=== PATIENT | male | born 1995 | race African-American/Black ===

== ENCOUNTER 2020-09-23 20:53 | Emergency (ER) | payer MEDICAID ==
--- NOTE | 2020-09-23 21:55 | NUR ---
TYEK TO THE PT AND THE FAMILY. [facility] IS REQUESTING PSYCH ADMISSION FOR THE PT. SPOKE TO THE PT 4 TIMES HOWEVER AND HE IS NOT WILLING TO GET ADMITTED TO A PSYCH FACILITY. DENIED SI/HI AT THIS TIME AND REPORTED I "HAVEN'T TAKEN MY MEDS ROUTINELY RECENTLY". PT AND FAMILY WERE ADVISED TO SEEK ASSISTANCE IN CASE OF EMERGENCY AND WE WILL BE MORE THAN HAPPY TO HELP THEM. PT DECIDED TO LEAVE THE HOSPITAL AND COME BACK IF NEEDED.
== END 2020-09-23 22:04 | disposition left against medical advice (07) ==
LOC: EDBD → ER 21:00
DX: Z04.6 Encounter for general psychiatric examination, requested by authority (principal); Z53.21 Procedure and treatment not carried out due to patient leaving prior to being seen by health care provider

== ENCOUNTER 2020-09-24 12:39 | Emergency (ER) | payer MEDICAID ==
[~2020-09-24] VITALS: Ht 180.3 cm; Wt 70.3 kg
--- NOTE | 2020-09-24 12:46 | NUR ---
DR CAMPBELL AT BEDSIDE FOR EVAL.
[2020-09-24 12:54] VITALS: BP 143/91
--- NOTE | 2020-09-24 12:54 | NUR ---
PT BIB FAMILY, AMBULATORY C/O "COUPLE OF DAYS OF FEELING DEPRESSED." PT IS AAOX4 BUT DENIES SI AND HI STATING HE JUST WANTS SOMEBODY TO TALK TO." PT DENIES DRUG USE PRIOR TO COMING IN. AWAITING MD ADKINS.
[2020-09-24 13:07] LABS: BASOPHILS # (AUTO) 0.1 /CMM (0.0-0.2); BASOPHILS % (AUTO) 0.6 % (0.0-2.0); BILIRUBIN,URINE SMALL (NEGATIVE); COLOR,URINE DARK YELLOW (YELLOW); EOSINOPHILS % (AUTO) 0.2 % (0.0-6.0); HEMATOCRIT 44 % (39-51); HEMOGLOBIN 14.9 g/dL (13.5-17.5); LEUKOCYTE ESTERASE ,URINE Negative (NEGATIVE); LYMPHOCYTES # (AUTO) 1.8 /CMM (0.8-4.8); LYMPHOCYTES % (AUTO) 14.1 % (20.0-44.0); MEAN CORPUSCULAR HGB CONC 34 g/dl (31.0-36.0); MEAN CORPUSCULAR VOLUME 96 fL (80-96); MONOCYTES % (AUTO) 7.8 % (2.0-12.0); NEUTROPHILS # (AUTO) 10.1 /CMM (1.8-8.9); NEUTROPHILS % (AUTO) 77.3 % (43.0-81.0); NITRITE, URINE Negative (NEGATIVE); PH,URINE 6.5 (5.0-8.0); PLATELET COUNT (AUTO) 236 /CMM (150-450); PROTEIN,URINE 30 mg/dl (NEGATIVE); UGLUCOSE Negative (NEGATIVE); UROBILINOGEN,URINE 0.2 EU/dL (0.2)
[2020-09-24 13:15] LABS: CALCIUM, SERUM 9.6 mg/dL (8.5-10.1); CARBON DIOXIDE 28 mmol/L (21-32); CHLORIDE 103 mmol/L (98-107); CREATININE 1.5 mg/dL (0.6-1.3); GLUCOSE 102 mg/dL (74-106); POTASSIUM 4.3 mmol/L (3.5-5.1); SODIUM SERUM 139 mmol/L (136-145); UREA NITROGEN, BLOOD 10 mg/dL (7-18)
[2020-09-24 13:19] LABS: BACTERIA,URINE Rare /HPF (None Seen); SQUAMOUS EPITHELIAL CELL,UR Rare /HPF (None Seen); WBC,URINE 0-3 /HPF (0-3)
[2020-09-24 13:20] LABS: RBC,URINE 0-3 /HPF (0-2)
[2020-09-24 13:29] LABS: ACETAMINOPHEN 0 ug/ml (10-30); ALANINE AMINOTRANSFERASE 23 U/L (12-78); ALCOHOL, BLOOD < 3 mg/dL (0-0); ALKALINE PHOSPHATASE 71 U/L (46-116); ASPARTATE AMINOTRANSFERASE 37 U/L (15-37); BILIRUBIN,DIRECT 0.2 mg/dL (0.0-0.2); BILIRUBIN,TOTAL 0.8 mg/dL (0.2-1.0); TOTAL PROTEIN, SERUM 7.2 g/dL (6.4-8.2)
--- NOTE | 2020-09-24 14:25 | NUR ---
[employer]ER ATTENDANT CALLED FOR EVAL
--- NOTE | 2020-09-24 14:48 | NUR ---
LEFT A VOICEMAIL FOR [employer]. WAITING FOR CALL BACK.
--- NOTE | 2020-09-24 15:34 | NUR ---
COVID NEGATIVE RESULT PER LAB
--- NOTE | 2020-09-24 17:49 | NUR ---
COMPRESS TRUCKER ON THEY WAY HERE. FREDERICK.
--- NOTE | 2020-09-24 19:00 | NUR ---
FREDERICK RN HERE FOR PSYCH EVAL. PT WAS NO LONGER AT ED. CALLED CONTACT INFO STATING THAT THEY CAN NO LONGER WAIT AND THEY HAVE TO LEAVE.
== END 2020-09-24 19:15 | disposition left against medical advice (07) ==
LOC: ER 12:39
DX: F29 Unspecified psychosis not due to a substance or known physiological condition (principal); D72.829 Elevated white blood cell count, unspecified; Z20.822 Contact with and (suspected) exposure to COVID-19
CPT/HCPCS: 36415; 71045; 80048; 80076; 80299; 80307; 80320; 81001; 85025; 87426; 99284; C9803; G0480